=== PATIENT | female | born 1980 | race African-American/Black ===

== ENCOUNTER → 2017-05-16 10:09 | Outpatient (CLI) | payer MEDICAID, SELFPAY ==
[2017-05-16 14:14] LABS: Absolute Lymphocyte Count 2.31 X10^3/ul (0.83-4.51); Absolute Neutrophil Count 4.3 X10^3/uL (2.0-7.7); Basophil# 0.02 X10^3/uL; Basophil% 0.3 % (0-1); Eosinophil# 0.19 X10^3/uL; Eosinophils% 2.5 % (0-5); Hematocrit 42.9 % (37-47); Hemoglobin 14.4 g/dl (12.0-15.0); Lymphocyte # 2.31 X10^3/ul (4.0); Lymphocyte % 30.6 % (19-41); Mean Corp Hgb Conc 33.6 g/gl (32-36); Mean Corpuscular Hgb 29.8 pg (27.0-32.0); Mean Corpuscular Volume 88.6 fL (81-99); Mean Platelet Vol. 10.6 fl (6.2-12.0); Monocyte# 0.73 X10^3/uL; Monocyte% 9.7 % (0-10); Neutrophil % 56.8 % (47-70); POSITIVE COUNT NO; POSITIVE DIFFERENTIAL NO; POSITIVE MORPHOLOGY NO; Platelet Count 176 K/mm3 (150-450); RBC Distribution Width CV 13.5 % (11.6-14.6); RBC Distribution Width SD 43.3 fl (35.1-43.9); Red Blood Count 4.84 M/mm3 (4.2-5.4); White Blood Count 7.6 K/mm3 (4.4-11.0)
[2017-05-16 14:39] LABS: ALB/GLOB Ratio 1.1 RATIO (0.9-2.4); AST(SGOT) 15 U/L (15-37); Alanine Aminotransfer ALT/SGPT 25 U/L (13-56); Albumin, Serum 3.8 g/dL (3.2-5.0); Alkaline Phosphatase 66 U/L (45-117); Anion Gap 8 (5-15); BUN 10 mg/dL (7-18); BUN/Creat Ratio 10.9 RATIO (10-20); Calcium,Total 8.4 mg/dL (8.5-10.1); Chloride 107 mmol/L (98-107); Creatinine, Serum 0.92 mg/dL (0.55-1.02); EST Glomerular Filtration Rate 73 mL/min (>60); Est Glom Filt Rate - Afr Amer 89 mL/min (>60); Globulin 3.4 g/dL (2.2-4.2); Glucose 71 mg/dL (74-106); Potassium 3.7 mmol/L (3.5-5.1); Protein, Total 7.2 g/dL (6.4-8.2); Sodium Level 139 mmol/L (136-145); Thyroid Stim Hormone (TSH) 1.12 uIU/mL (0.358-3.74)
== END ==
PROVIDERS: Family Provider Family Medicine Geriatric Medicine; PCP Family Medicine Geriatric Medicine; Visit Provider Family Medicine Geriatric Medicine
DX: R53.83 Other fatigue (principal); E55.9 Vitamin D deficiency, unspecified
CPT/HCPCS: 36415; 80053; 82306; 84443; 85025

== ENCOUNTER → 2017-06-01 12:08 | Outpatient (CLI) | payer MEDICAID, SELFPAY ==
--- NOTE | 2017-06-01 12:10 | STE_ITS ---
Version 2 Reason For Study: Chest Pain Stress Results Protocol: Steve Protocol Maximum Predicted HR: 183 bpm Target HR: 156 bpm% Max imum Predicted HR: 85 % DurationHeart Rate Stage (mm:ss) (bpm) BP Baseline 70 104/60 Steve Protocol Stage I 3:00 12 1 110/64 Steve Protocol Stage II 3:00 14 8 130/68 Steve Protocol Stage III 0:30 15 5 / Recovery 83 108/72 Stress Duration: 6:30 mm:ss Maximum Stress HR: 155 bpmM ETS: 8 Baseline Echocardiogram Findings The estimated ejection fraction is 65 %. Stress Echo Wall motion Data Resting WMIntermediate WMStress WM Resting Wall Motion Wall Motion Stress No regional wall motion No regional wall motion abnormalities noted. abnormalities noted. EKG Data Normal intervals are noted. The patient exercised according to the regular Steve protocol for a total duration of 6:30. The maximum heart rate attained was 171 beats per minute. This was 93% of maximum predicted heart rate. The patient exercised into stage 3 of the Steve protocol. The stress ECG displays diffuse abnormal ST segments. Interpretation Summary The estimated ejection fraction is 65 %. Normal adequate treadmill echocardiogram. Negative for ischemia by echocardiographic criteria. No anginal symptoms noted. Rare PVC noted. Abnormal EKG with exercise with dynamic ST segment depression which is nonspecific given patient's age and female status. No associated wall motion abnormalities noted. Below average exercise capacity for age. Appropriate blood pressure response to exercise. Test terminated due to leg discomfort. Patient tolerated procedure well. Final LVEF=75%. No complications. Ordering Physician: Brent Wesley MD Referring Physician: Darek Franklin Chi Performed By: Cari Castañeda, FREEMAN, RVT
== END ==
PROVIDERS: Family Provider Family Medicine Geriatric Medicine; PCP Family Medicine Geriatric Medicine; Visit Provider Family Medicine Geriatric Medicine
DX: R07.9 Chest pain, unspecified (principal); R94.31 Abnormal electrocardiogram [ECG] [EKG]
CPT/HCPCS: 93017; 93350

== ENCOUNTER 2018-02-20 16:34 | Emergency (ER) | payer MEDICAID, SELFPAY ==
[2018-02-20 16:35] VITALS: BP 153/88; PULSE 95; RESP 16; TEMP 36.8; O2SAT 98; BMI 33.1
--- NOTE | 2018-02-20 17:30 | ED.DCSUM_ITS ---
- ER Visit Summary Date of Service: 02/20/18 Chief Complaint: Left eye watering and foreign body sensation. History of Present Illness: The patient is a 37 F states he takes him out every day. The last 3 days she has had discomfort, increased watering and foreign body sensation in her left eye. She denies any visual change. She denies any trauma. Physical Examination: Well-appearing female. Vital signs are stable. She is afebrile. She is in no distress. HEENT exam is round reactive to light. Range of motions are intact. Both eyes seem slightly injected. There is no crusting or discharge. She has watering from the left eye. Pupils are round and reactive light. She does have prominent exophthalmos bilaterally. She states is been that way her entire life. No obvious foreign body. No obvious trauma. Pupils are round reactive to light. External motions are intact. Neck nontender no lymphadenopathy. Lungs clear to auscultation. Heart regular rate and rhythm no murmur. Abdomen soft nontender. There is in all 4 extremities. Neurologic exam normal no focal motor deficits. No nerve palsies. Test Results: Visual acuity equals 20/25 right eye. 20/40 left eye. And 20/25 both eyes. That is with her glasses on. Emergency Department Course and Treatment: Fluorescein stain and slit lamp of the left eye. Shows no acute abnormality. No bacterial infection. No corneal abrasion. No foreign body. Upper and lower lids everted and showed no signs of any trauma or swelling or infection. Treatment Plan: For contact irritation. Bacitracin ophthalmic ointment. Leave contacts out for 1 week. Follow-up with [facility]. Return if worse. Disposition: Discharge Impression: Acute left eye irritation secondary to contact lens use. This note was generated with [employer] dictation software. It may contain incorrect words, spelling, and punctuation that were not noted in review of the chart prior to signing ED Disposition - Plan for ED Patient: Chief Complaint: Eye Problem Referrals: Darek Franklin Chi, MD [Primary Care Provider] -
[2018-02-20] MEDS: Fluorescein 1 MG STRIP 1 STRIP LEFT EYE (17:40)
[2018-02-20] MEDS: Tetracaine 0.5% Ophthalmic Bottle 1 DRP LEFT EYE (17:41)
--- NOTE | 2018-02-20 17:59 | DCINST.ED_ITS ---
ED Disposition - Plan for ED Patient: Disposition: Home or Assisted Living Chief Complaint: Eye Problem Instructions: ED Corneal Injury Contact Lens Referrals: Nghia Reaves MD [STAFF PHYSICIAN] - 3-5 Days if not improving Additional Instructions: There is a trace ophthalmic ointment to left eye 3 times a day until finished. No contact lens use until I feels totally normal for several days. Usual glasses. When you go back to her contact use a new pair. Follow-up with [facility] the eye center with Dr. Revaes for further evaluation of your eyes. I did not see any corneal abrasions or foreign bodies or any signs of infection today. I feel is secondary to an irritation from your contact lens.
[2018-02-20 18:03] VITALS: BP 148/89; PULSE 85; RESP 16; O2SAT 98
== END 2018-02-20 18:06 | disposition home or self-care (01) ==
PROVIDERS: Emergency Provider Emergency Medicine; Family Provider Family Medicine Geriatric Medicine; PCP Family Medicine Geriatric Medicine
DX: H57.89 Other specified disorders of eye and adnexa (principal); H05.20 Unspecified exophthalmos; J45.909 Unspecified asthma, uncomplicated; Z72.0 Tobacco use
CPT/HCPCS: 99283

== ENCOUNTER → 2018-05-27 16:20 | Outpatient (CLI) | payer MEDICAID, SELFPAY ==
[2018-05-27 17:17] LABS: Absolute Lymphocyte Count 3.42 X10^3/ul (0.83-4.51); Absolute Neutrophil Count 4.4 X10^3/uL (2.0-7.7); Basophil# 0.02 X10^3/uL; Basophil% 0.2 % (0-1); Eosinophil# 0.23 X10^3/uL; Eosinophils% 2.6 % (0-5); Hematocrit 40.9 % (37-47); Hemoglobin 13.4 g/dl (12.0-15.0); Lymphocyte # 3.42 X10^3/ul (4.0); Lymphocyte % 38.5 % (19-41); Mean Corp Hgb Conc 32.8 g/gl (32-36); Mean Corpuscular Hgb 29.6 pg (27.0-32.0); Mean Corpuscular Volume 90.3 fL (81-99); Mean Platelet Vol. 9.9 fl (6.2-12.0); Monocyte# 0.84 X10^3/uL; Monocyte% 9.4 % (0-10); Neutrophil # 4.36 X10^3/uL (2.7-7.7); Neutrophil % 49.1 % (47-70); Platelet Count 206 K/mm3 (150-450); RBC Distribution Width CV 13.6 % (11.6-14.6); RBC Distribution Width SD 44.8 fl (35.1-43.9); Red Blood Count 4.53 M/mm3 (4.2-5.4); White Blood Count 8.9 K/mm3 (4.4-11.0)
[2018-05-27 17:23] LABS: POSITIVE COUNT NO; POSITIVE DIFFERENTIAL NO; POSITIVE MORPHOLOGY NO
[2018-05-27 17:46] LABS: ALB/GLOB Ratio 1.1 RATIO (0.9-2.4); AST(SGOT) 27 U/L (15-37); Alanine Aminotransfer ALT/SGPT 34 U/L (13-56); Albumin, Serum 3.8 g/dL (3.2-5.0); Alkaline Phosphatase 78 U/L (45-117); Anion Gap 5 (5-15); BUN 13 mg/dL (7-18); BUN/Creat Ratio 14.9 RATIO (10-20); Calcium,Total 8.4 mg/dL (8.5-10.1); Chloride 109 mmol/L (98-107); Creatinine, Serum 0.87 mg/dL (0.55-1.02); EST Glomerular Filtration Rate 77 mL/min (>60); Est Glom Filt Rate - Afr Amer 94 mL/min (>60); Globulin 3.5 g/dL (2.2-4.2); Glucose 76 mg/dL (74-106); Potassium 3.4 mmol/L (3.5-5.1); Protein, Total 7.3 g/dL (6.4-8.2); Sodium Level 140 mmol/L (136-145)
== END ==
PROVIDERS: Family Provider Family Medicine Geriatric Medicine; PCP Family Medicine Geriatric Medicine; Visit Provider Family Medicine Geriatric Medicine
DX: R53.83 Other fatigue (principal)
CPT/HCPCS: 36415; 80053; 84443; 85025

== ENCOUNTER → 2018-07-03 17:07 | Outpatient (CLI) | payer MEDICAID, SELFPAY ==
--- NOTE | 2018-07-03 17:35 | RAD_ITS ---
STUDY: X-RAY - RIGHT KNEE REASON FOR EXAM: Female, 37 years old. Worsening pain. TECHNIQUE: 4 view(s) of the knee. COMPARISON: June 08, 2016. FINDINGS: Normal visualized distal femur. Normal visualized proximal tibia and fibula. Normal proximal tibiofibular articulation. There is no acute fracture, dislocation or destructive osseous pathology. Normal medial femorotibial compartment. Normal lateral femorotibial compartment. Normal patellofemoral articulation. There is no demonstrated joint effusion. The soft tissue structures are unremarkable. RAD/Knee 4 or More Views IMPRESSION: Normal x-ray examination of the knee. There is no interval change. Electronically Signed: Elmer Cardenas DO at 19:02 EDT Tel [phone], Service support ,
[2018-07-03 17:41] LABS: Absolute Lymphocyte Count 3.17 X10^3/ul (0.83-4.51); Basophil# 0.02 X10^3/uL; Basophil% 0.2 % (0-1); Eosinophil# 0.29 X10^3/uL; Eosinophils% 2.8 % (0-5); Hematocrit 40.8 % (37-47); Hemoglobin 13.8 g/dl (12.0-15.0); Lymphocyte # 3.17 X10^3/ul (4.0); Lymphocyte % 30.1 % (19-41); Mean Corp Hgb Conc 33.8 g/gl (32-36); Mean Corpuscular Hgb 29.9 pg (27.0-32.0); Mean Corpuscular Volume 88.5 fL (81-99); Mean Platelet Vol. 9.8 fl (6.2-12.0); Monocyte# 1.01 X10^3/uL; Monocyte% 9.6 % (0-10); Neutrophil # 6.01 X10^3/uL (2.7-7.7); Neutrophil % 57.1 % (47-70); Platelet Count 201 K/mm3 (150-450); RBC Distribution Width CV 13.8 % (11.6-14.6); RBC Distribution Width SD 44.7 fl (35.1-43.9); Red Blood Count 4.61 M/mm3 (4.2-5.4); White Blood Count 10.5 K/mm3 (4.4-11.0)
[2018-07-03 17:51] LABS: Anion Gap 7 (5-15); BUN 12 mg/dL (7-18); BUN/Creat Ratio 12.6 RATIO (10-20); CRP 3.05 mg/L (0.0-3.0); Calcium,Total 8.8 mg/dL (8.5-10.1); Chloride 111 mmol/L (98-107); Creatinine, Serum 0.95 mg/dL (0.55-1.02); EST Glomerular Filtration Rate 70 mL/min (>60); Est Glom Filt Rate - Afr Amer 84 mL/min (>60); Glucose 94 mg/dL (74-106); Potassium 3.8 mmol/L (3.5-5.1); Sodium Level 141 mmol/L (136-145); Uric Acid 3.9 mg/dL (2.6-6.0)
[2018-07-03 18:02] LABS: POSITIVE COUNT NO; POSITIVE DIFFERENTIAL NO; POSITIVE MORPHOLOGY NO
[2018-07-03 18:07] LABS: Erythrocyte Sedimentation Rate 14 mm/hr (0-20)
== END ==
PROVIDERS: Family Provider Family Medicine Geriatric Medicine; PCP Family Medicine Geriatric Medicine; Referring Provider Family Medicine Geriatric Medicine; Visit Provider Family Medicine Geriatric Medicine
DX: M25.569 Pain in unspecified knee (principal); R53.83 Other fatigue; M10.9 Gout, unspecified
CPT/HCPCS: 36415; 73564; 80048; 84550; 85025; 85652; 86140

== ENCOUNTER → 2018-07-04 15:11 | Outpatient (CLI) | payer SELFPAY ==
--- NOTE | 2018-07-04 15:20 | VDLE_ITS ---
Reason For Study: edema RIGHT LEFT GSV is normal. GSV is normal. CFV is compressible, spontaneous, phasic, CFV is compressible, spontaneous, phasic, competent and demonstrates normal competent, and demonstrates normal augmentation. augmentation. FV is compressible, spontaneous, phasic, FV is compressible, spontaneous, phasic, competent and demonstrates normal competent and demonstrates normal augmentation. augmentation. POP V is compressible, spontaneous, phasic, POP V is compressible, spontaneous, phasic, competent and demonstrates normal competent and demonstrates normal augmentation. augmentation. T/P Trunk is compressible. T/P Trunk is compressible. PTV is compressible. PTV is compressible. RT PerV is compressible. LT PerV is compressible. Procedure Exam performed in department. The exam was diagnostic. A preliminary report was called and/or faxed to Dr. Franklin. Interpretation Summary Deep veins of the lower extremities are bilaterally patent and compressible segmentally. There is no evidence of deep vein thrombosis on either side. Valvular competence appears intact within the proximal deep venous systems bilaterally. The greater saphenous veins appear bilaterally patent and compressible segmentally. Ordering Physician: Darek Franklin Performed By: Daen Wellington RVT
== END ==
LOC: CVS 15:12
PROVIDERS: Family Provider Family Medicine Geriatric Medicine; PCP Family Medicine Geriatric Medicine; Referring Provider Family Medicine Geriatric Medicine; Visit Provider Family Medicine Geriatric Medicine
DX: R60.0 Localized edema (principal); M10.9 Gout, unspecified; M25.569 Pain in unspecified knee; R53.83 Other fatigue
CPT/HCPCS: 93970

== ENCOUNTER 2018-12-24 12:24 | Emergency (ER) | payer SELFPAY ==
[2018-12-24 12:24] VITALS: BP 162/78; PULSE 87; RESP 18; TEMP 36.4; O2SAT 99; BMI 40.1
--- NOTE | 2018-12-24 12:54 | ED.VIS.GEN ---
History of Present Illness Chief Complaint: Rash Informant: Patient Onset: Weeks Context: Gradual Onset Timing: Continuous Current Severity: Moderate Maximum Severity: Moderate Narrative: The patient presents to the emergency department with rash. Patient states that it started about 3 weeks ago. She saw her primary care. She was placed on prednisone and had a steroid shot. She states that it cleared up, but over the past 3 or 4 days, it returned. She describes it as very pruritic. She denies any lotions, soaps, shampoos, or other systemic symptoms. She denies any fevers or chills. She denies any new medications. Past Medical History - Allergies and Home Meds Allergies/Adverse Reactions: Allergies egg Allergy (Verified 12/24/18 12:26) Nausea/Vom/Diarrhea sulfamethoxazole [From Bactrim] Allergy (Verified 12/24/18 12:26) Hives trimethoprim [From Bactrim] Allergy (Verified 12/24/18 12:26) Hives Primary Care Physician: Darek Franklin Chi, MD [Primary Care Provider] - Prior records reviewed: Yes Past Medical History: None Surgical History: - - x 3, hysteroscopy, endometrial ablation. Smoking Status: Current every day smoker - Family History Maternal Family History: Reports: No pertinent history Paternal Family History: Reports: Heart Disease - Notable cardiac history, initial onset 30-40s, CHF, CAD/DE, PAF. Review of Systems General: Denies: Chills, Fever, Sweats Eyes: Denies: Visual changes - bilaterally, Diplopia ENT: Denies: Rhinorrhea, Sore throat Cardiovascular: Denies: Chest pain, Palpitations Respiratory: Denies: Dyspnea, Cough, Dyspnea on exertion Gastrointestinal: Denies: Abdominal pain, Nausea, Vomiting, Diarrhea, Melena, Hematochezia Genitourinary: Denies: Dysuria, Hematuria, Frequency Musculoskeletal: Denies: Back pain, Extremity Pain Skin: Reports: Rash. Denies: Wounds Neurological: Denies: Headache, Weakness, Numbness Physical Exam Vital Signs/Narrative: Vital Signs Temp Pulse Resp BP Pulse Ox 12/24/18 12:24 97.5 F L 87 18 162/78 H 99 Inital Vital Signs reviewed: Yes General: Well nourished, Well developed, No Acute Distress Head: Normocephalic, Atraumatic Eyes: Perrl, EOMI ENT: Moist mucous membranes, No rhinorrhea Neck: Supple, Nontender Cardiovascular: Regular rate, Regular rhythm, No murmurs Respiratory: No distress, CTA bilaterally, Chest nontender Abdomen: Soft, Nontender, Nondistended, Normal bowel sounds Back: Nontender, Normal Inspection Extremities: Nontender, No edema Skin: Normal color, Rash - The patient has diffuse urticaria. There is no cellulitis. There is no streaking. There is no skin breakdown or abscess. Neurological: Alert, Oriented x3, Cranial nerves II-XII grossly intact, Normal Strength, Normal Sensation Psychological: Normal affect, Normal Mood Diagnostic/Tx/Re-eval - Medical Decision Making The patient has a rebound urticaria. There is no evidence of bacterial process. At this point, I am going to place her on a longer taper of prednisone as a seem to have happened and helped before. I do not feel antibiotics are necessary. Patient was counseled on concerning symptoms and reasons to return. She will be discharged home. Impression 1. Rebound urticaria ED Disposition - Plan for ED Patient: Disposition: Home or Assisted Living Instructions: ALLERGIC REACTION, Other (General) Prescriptions: Prednisone 10 mg PO DAILY #63 tab Prescription Printed Hydroxyzine Pamoate [Vistaril] 50 mg PO 4X/DAY PRN PRN #30 cap PRN Reason: Itching Prescription Printed Referrals: Darek Franklin Chi, MD [Primary Care Provider] -
== END 2018-12-24 13:17 | disposition home or self-care (01) ==
LOC: ED 12:56
PROVIDERS: Emergency Provider Emergency Medicine; Family Provider Family Medicine Geriatric Medicine; PCP Family Medicine Geriatric Medicine
DX: L50.9 Urticaria, unspecified (principal); F17.200 Nicotine dependence, unspecified, uncomplicated; Z79.899 Other long term (current) drug therapy; Z88.2 Allergy status to sulfonamides; Z88.1 Allergy status to other antibiotic agents
CPT/HCPCS: 99282

== ENCOUNTER 2024-04-20 09:29 | Emergency (ER) | payer MEDICAID, SELFPAY ==
[2024-04-20 09:30] VITALS: BP 178/98; PULSE 87; RESP 18; TEMP 36.8; O2SAT 99
[2024-04-20 10:04] LABS: Bacteria 0 SEEN /hpf (None Seen); Mucous, Urine 0 SEEN /hpf (<or=2+); Red Blood Cells-Urine 0 SEEN /hpf (0-5)
[2024-04-20 10:08] LABS: Color, Urine Yellow (Yellow); Glucose, Dipstick Normal (Normal); Ketone-Dipstick Negative (Negative); Leukocyte Esterase-Dipstick 100 /ul (Negative); Nitrite-Dipstick Negative (Negative); Occult Blood-Urine 250 /ul (Negative); Protein-Dipstick 30 mg/dl (Negative); Specific Gravity, Urine 1.025 (1.002-1.030); Urine Bilirubin Dipstick Negative (Negative); Urine Clarity Sl. Cloudy (Clear); Urine Urobilinogen Normal (Normal)
[2024-04-20 10:16] LABS: Squamous Epithelial Cells - UA 5-10 SEEN /hpf (5-10); White Blood Cells 10-25 SEEN /hpf (0-5)
--- NOTE | 2024-04-20 10:42 | ED.VIS.FEGU ---
HPI HPI - Female History of Present Illness Chief Complaint: Female C/O Detail of Chief Complaint: Pain and itching vaginal area and now bleeding Informant: patient Pain Pain: Positive for Vaginal Pain Onset: Days (Onset April 17) Context: Sudden Onset Timing: Continuous and Waxes and wanes Quality: Positive for Burning Location: - (Vaginal opening) Current Severity: Mild Maximum Severity: Moderate Worsened by: - (Urination) Bleeding Issue: Positive for Vaginal bleeding; Negative for Passing clots or Passing tissue Onset: Today Context: Sudden Onset Timing: Continuous Current Severity: Similar to period Maximum Severity: Similar to period Vaginal Discharge Onset: Days (Noted 2 days ago) Quality: Positive for White Severity: Light Associated Symptoms Associated Symptoms: Positive for Dysuria; Negative for Frequency, Urgency, Hematuria, Missed Period or Irregular Period Last known menstrual period: Beginning april normal sparse duration, flow and color Sexually: Positive for Active Control: BTL (Per patient tubes were burned and cut) Narrative Narrative: Patient is a 43-year-old woman who presents because of dysuria that started several days ago. She also had a white discharge. She believes she had a yeast infection. She bought [id number] medication for the discomfort and yeast infection. She presents today because she is concerned the medication caused her to have vaginal bleeding and irritation. She denies history of STI. She denies vaginal discharge at this time. She states she had bright red blood per vagina. She has no symptoms of . She denies fever, chills night sweats. She denies low back pain or flank pain. She denies any vaginal lesions. She presently does not have a primary care physician or a manager neonatal. Patient denies any vigorous sexual activity. Patient denies taking bubble baths. Patient denies recent douching or using powders. Prior similar symptoms: No Recent Illness/Hospitalization: No PFSH PFSH Medical History no medical history no medical history Home Medications ?Medication ?Instructions ?Recorded ?Last Taken ?Type hydroxyzine pamoate 50 mg capsule 50 mg PO 4X/DAY PRN PRN Itching 12/24/18 Unknown Rx #30 caps prednisone 10 mg tablet 10 mg PO DAILY #63 tabs 12/24/18 Unknown Rx doxycycline monohydrate 100 mg 100 mg PO BID #14 CAPSULES 04/20/24 Unknown Rx capsule hydrochlorothiazide 12.5 mg tablet 12.5 mg PO DAILY #30 tabs 04/20/24 Unknown Rx Allergy/AdvReac Type Severity Reaction Status Date / Time egg Allergy Nausea/Vom/ Verified 12/24/18 12:26 Diarrhea sulfamethoxazole (From Allergy Hives Verified 12/24/18 12:26 Bactrim) trimethoprim (From Bactrim) Allergy Hives Verified 12/24/18 12:26 Surgical History (Updated 04/20/24 @ 10:[address] Stephon Bains MD) History of bilateral ligation of fallopian tubes Social History (Updated 04/20/24 @ 10:[address] Stephon Bains MD) household members: family and children Smoking Status: Former smoker ROS ROS ED Constitutional Constitutional ED: Denies chills, fever(s), subjective or sweats Eyes Eyes: Denies blurry vision or change in vision ENT ENT ED: Denies sore throat Cardiovascular Cardiovascular: Denies chest pain Respiratory/Chest Respiratory/Chest: Denies dyspnea Gastrointestinal Gastrointestinal: Denies abdominal pain, nausea or vomiting Genitourinary Genitourinary ED: Reports dysuria; Denies hematuria or urinary frequency Musculoskeletal Musculoskeletal: Reports other Details: Denies central low back pain or flank pain. Integumentary Reports rash Hematologic/Lymphatic Hematologic/Lymphatic: Denies easy bleeding or easy bruising EXAM Physical Exam Const Vital Signs: 04/20/24 09:30 Temperature 98.2 F Temperature Source Oral Pulse Rate 87 Respiratory Rate 18 Blood Pressure 178/98 H Blood Pressure Mean 124 Pulse Ox 99 Oxygen Delivery Method Room Air Positive well nourished and well developed Constitutional Narrative: BMI is greater than 30. General Appearance ED: well developed and NAD; Negative for odor of alcohol detected HEENT Reports moist mucous membranes HEENT Narrative: Head is atraumatic normocephalic. Eyes PERRL and EOMs intact bilaterally General Eye ED: Negative for pale conjunctiva or scleral icterus Resp normal respiratory effort and clear to auscultation bilaterally Cardio regular rate, regular rhythm, S1 normal heart sound, no murmurs and no JVD GI normal to inspection, nondistended, normoactive bowel sounds, soft to palpation, non-tender, non-distended and no masses Narrative: External genitalia is normal. There is inflammation of the urethra. There is no abnormality of the labia minora or majora. Blood is noted at the introitus. Because of body habitus unable to appreciate size of the uterus. Unable to appreciate any fullness in the adnexa and there is no tenderness noted right or left adnexal region. She did complain of mild discomfort with pressure against the cervix. She complained of significant discomfort with pressure against the urethra. The bleeding minimal with 5 to 7 cc in the vaginal vault. Blood was from the uterus. Only a portion of the cervix was visualized. No abnormality noted. Back/Spine no CVA tenderness Extremity normal to inspection and full ROM Neuro oriented x3 and CN's II-XII intact bilaterally Sensorium / Orientation: alert Psych mental status grossly normal Skin no rashes or lesions noted and no wounds MDM MDM MDM Narrative Medical decision making narrative: Need to evaluate for urinary tract infection, STI, doubt this is related since she reports no sexual activity and reports bilateral tubal ligation and cutting of the fallopian tubes. Furthermore she has no symptoms of . UA was obtained. UA reveals pyuria. There is no bacteria noted. Suspect this is due to the inflammation noted on exam of the urethra. In light of this we will urine for GC and chlamydia was obtained. Case was discussed with Dr. Garces who is on-call for RESEARCH METHODS INSTRUCTOR. Patient to call office for follow-up regarding abnormal vaginal bleeding and urethral inflammation. Patient was treated with doxycycline which will cover STI as well as UTI source. Since she does not have a primary care physician and her blood pressure is elevated 178/98 she was referred to Dr. Banegas. She was started on hydrochlorothiazide. Lab Data Attestation: I reviewed the patient's lab results. Lab results narrative: Urine is remarkable for proteinuria. There is also occult blood and leuk sites. Micro reveals 0 RBCs with 10-25 WBCs and 5-10 squamous epithelial cells. There is no bacteria noted. Labs: Laboratory Results - last 24 hr 04/20/24 10:01 Urine Color Yellow Urine Clarity Sl. Cloudy Urine pH 6.0 Ur Specific [facility] 1.025 Urine Protein 30 H Urine Glucose (UA) Normal Urine Ketones Negative Urine Occult Blood 250 H Urine Nitrite Negative Urine Bilirubin Negative Urine Urobilinogen Normal Ur Leukocyte Esterase 100 H Urine RBC 0 SEEN Urine WBC 10-25 SEEN Ur Squamous Epith Cells 5-10 SEEN Urine Bacteria 0 SEEN Urine Mucus 0 SEEN Management Discussion w/another healthcare provider: Film Librarian (Documented MDA portion of the EMR) Discharge Plan Triage Chief Complaint: Female C/O Other Complaint: Vag Bleeding ED Provider: Stephon Bains Dx/Rx/DC Orders Clinical Impression: Urethritis, Obesity (BMI 30.0-34.9), Abnormal uterine and vaginal bleeding, unspecified, Elevated blood-pressure reading without diagnosis of hypertension Instructions: Urethritis in Women, ED Dysfunctional Uterine Bleeding, ED Hypertension, To Be Confirmed Prescriptions: New doxycycline monohydrate 100 mg capsule 100 mg PO BID Qty: 14 0RF hydrochlorothiazide 12.5 mg tablet 12.5 mg PO DAILY Qty: 30 0RF No Action prednisone 10 MG tablet 10 mg PO DAILY Qty: 63 0RF Rx Instructions: 60 mg p.o. daily ?3 days, 50 mg p.o. daily ?3 days, 40 mg p.o. daily ?3 days, 30 mg p.o. daily ?3 days, 20 mg p.o. daily ?3 days, 10 mg p.o. daily ?3 days. hydroxyzine pamoate 50 MG capsule 50 mg PO 4X/DAY PRN PRN (Reason: Itching) Qty: 30 0RF Primary Care Provider: Care Physician,No Primary Referrals: Shona Wells MD [Med Staff - Active Staff] - 3-5 Days Patito Hickman MD [Med Staff - Printed Circuit Board Panels Developer] - 1-2 Weeks Care Physician,No Primary [Primary Care Provider] - Print Language: Latvian Disposition Disposition: Home, Self Care
[2024-04-20 11:03] LABS: Internal QC Validated? YES +Cl - CLEAR BKGD; Pregnancy, Serum, hCG Quali. NEGATIVE Negative
[2024-04-20 11:23] VITALS: BP 139/85; PULSE 68
== END 2024-04-20 11:24 | disposition home or self-care (01) ==
PROVIDERS: Emergency Provider Emergency Medicine; Visit Provider Emergency Medicine
DX: N34.2 Other urethritis (principal); R10.2 Pelvic and perineal pain; N93.9 Abnormal uterine and vaginal bleeding, unspecified; R80.9 Proteinuria, unspecified; R03.0 Elevated blood-pressure reading, without diagnosis of hypertension; E66.9 Obesity, unspecified; R82.81 Pyuria; N89.8 Other specified noninflammatory disorders of vagina; Z79.899 Other long term (current) drug therapy; Z87.891 Personal history of nicotine dependence; Z98.51 Tubal ligation status
CPT/HCPCS: 81001; 84703; 87491; 87591; 99282; A4216